=== PATIENT | male | born 1940 | race Caucasian/White ===

== ENCOUNTER 2020-04-22 13:48 | Emergency (ER) | payer OTHER ==
[~2020-04-22] VITALS: Ht 167.6 cm; Wt 84.8 kg
[2020-04-22] MEDS ORDERED: LASIX20 MG (13:58)
[2020-04-22] MEDS ORDERED: TAMS0.4C (13:58)
[2020-04-22] MEDS ORDERED: ENTRESTO 24 MG1 EACH (13:59)
[2020-04-22] MEDS ORDERED: CARVEDILOL12.5 MG (13:59)
[2020-04-22] MEDS ORDERED: ATORVASTATIN CA10 MG (13:59)
[2020-04-22] MEDS ORDERED: INSPRA25 MG (14:00)
[2020-04-22] MEDS ORDERED: ALDACTONE25 MG (14:01)
[2020-04-22] MEDS ORDERED: ASPIR 8181 MG (14:01)
== END 2020-04-22 17:43 | disposition home or self-care (01) ==
LOC: ER 13:48
DX: B34.9 Viral infection, unspecified (principal); Z03.818 Encounter for observation for suspected exposure to other biological agents ruled out; R51 Headache

== ENCOUNTER 2020-07-16 15:55 | Emergency (ER) | payer OTHER ==
[~2020-07-16] VITALS: Ht 170.2 cm; Wt 84.8 kg
[~2020-07-16 15:55] MED LIST: ALDACTONE25 MG; ASPIR 8181 MG; ATORVASTATIN CA10 MG; CARVEDILOL12.5 MG; ENTRESTO 24 MG1 EACH; INSPRA25 MG; LASIX20 MG; TAMS0.4C
[2020-07-16] MEDS ORDERED: TAMSULOSIN HCL0.4 MG PO (16:17)
[2020-07-16] MEDS ORDERED: CARVEDILOL6.25 M1 PO (16:17)
[2020-07-16] MEDS ORDERED: ENTRESTO 49 MG1 EACH PO (16:17)
[2020-07-16] MEDS ORDERED: FUROSEMIDE20 MG PO (16:18)
[2020-07-16] MEDS ORDERED: SPIRONOLACTONE25 MG PO (16:18)
[2020-07-16] MEDS ORDERED: CLEOCIN HCL150 MG PO (18:10)
== END 2020-07-16 18:28 | disposition home or self-care (01) ==
LOC: ER 15:55
DX: S90.32XA Contusion of left foot, initial encounter (principal); L03.116 Cellulitis of left lower limb; W18.09XA Striking against other object with subsequent fall, initial encounter; Y93.89 Activity, other specified; Y92.89 Other specified places as the place of occurrence of the external cause; Y99.8 Other external cause status

== ENCOUNTER 2021-06-30 11:59 | Emergency (ER) | payer OTHER ==
[~2021-06-30] VITALS: Ht 170.2 cm; Wt 89.4 kg
[~2021-06-30 11:59] MED LIST changes: +CARVEDILOL6.25 M1 PO; +CLEOCIN HCL150 MG PO; +ENTRESTO 49 MG1 EACH PO; +FUROSEMIDE20 MG PO; +SPIRONOLACTONE25 MG PO; +TAMSULOSIN HCL0.4 MG PO
== END 2021-06-30 18:03 ==
LOC: ER 11:59
DX: U07.1 COVID-19 (principal)